=== PATIENT | female | born 1950 | race Caucasian/White ===

== ENCOUNTER 2023-05-02 07:50 | Emergency (ER) | payer OTHER, SELFPAY ==
[2023-05-02 08:00] VITALS: BP 123/65
--- NOTE | 2023-05-02 09:26 | ED.GENMED ---
History of Present Illness
General
Chief Complaint: Back Pain
Source: patient
Exam Limitations: none
Time Seen by Provider: 05/02/23 09:07
Nursing documentation reviewed up to this point in time: agreed with
Travel History
Have you had any contact with someone who has COVID-19?: No
Do you have any symptoms of coronavirus? Fever > 100 degrees, chills, cough, shortness of breath, sore throat, loss of taste or smell, muscle aches, or headache?: No
History of Present Illness
History of Present Illness:
72 y/o F with h/o COPD stillsmokes, HLD
here with lower back pain radiating down the side of her right leg x 5 days
no injuries
has had seimilar pain before last year and was seen here and given toradol IM and sent home with meloxicam and xanaflex.
pt says she really hasn't had any issues with it until a few days ago
no injuries or lifting.
Phy Exam
Physical Exam
Physical Exam:
GENERAL: Alert , in no apparent distress, comfortable at rest
HEAD: NCAT
NECK: no midline tenderness, active ROM intact, no paraspinal muscle tenderness;
CARDIAC: Regular rate and rhythm, no edema
LUNGS: faint end exp wheezing b/l, no acute respiratory distress, no rales/rhonchi
ABDOMEN: Soft, without focal tenderness, no r/g, no cvat, normal bowel sounds, nondistended
NEUROLOGICAL: Alert and oriented, no focal neuro deficits, CN intact, 5/5 strength, sensation intact, ambulation steady
SKIN: Warm and dry,
MUSCULOSKELETAL: No edema, well perfused. nontender hips
Back: lower lumbar tendenress, specifically right paraspinal moderate R SI joint tendenress no swelling
straight leg raise pos to pain going to thigh on the right at 30 degrees
PSYCH: Normal and appropriate interaction.
Course
Orders/Labs/Results
Orders:
Orders
05/02/23 09:24
Ketorolac [Toradol] 15 mg IM NOW STA
Prednisone [Deltasone] 50 mg PO NOW STA
Lumbar Spine Complete, 4 View [CR Lumbar Spine Comp Min 4 Vw*] Urgent
Comment:
Reason For Exam: low back pain
Vital Signs
Initial and Last Documented VS:
Initial Vital Signs
Temp Pulse Resp BP Pulse Ox
98.3 F 80 16 123/65 93
05/02/23 08:00 05/02/23 08:00 05/02/23 08:00 05/02/23 08:00 05/02/23 08:00
Last Documented Vital Signs
Temp Pulse Resp BP Pulse Ox
98.3 F 80 16 123/65 93
05/02/23 08:00 05/02/23 08:00 05/02/23 08:00 05/02/23 08:00 05/02/23 08:00
MDM/Problems Addressed
Differential Diagnosis Includes:
sciatica, lumbar radiculopathy, arthritis
MDM/Problems Addressed:
72 y/o F with copd, HLD
says she has recurrence of back pain in the right side down her right leg x 5 days no inciting injury
no weakness/numbness, incontinence, fever
has never had MRI
had the pain last year and was given nsaids and muscle relaxants which helped
she has no red flag exam findings
tender R SI joint
the right straight leg raise was miimally positive with pain into the thigh but no weankess/numbnes
no signs cauda equina
she is wheezing on exam which is typical for her
suspect that prednisone may be a good antiinflammatory for both her pain and her COPD
muscle relaxant for night
tylenol
lidocaine
screening xrays independently reviewed by me: degenerative changes; no fractures
*Critical Care Note
Total Time (30-74mins, 75-104mins- exclusive of procedures): Not Applicable
ED Attending Note
-
Portions of this chart may have been created with voice recognition software.� Occasional wrong word or��sound alike� substitutions may have occurred due to the inherent limitations of voice recognition software.
Discharge Plan
Departure
Patient Disposition: Home (Routine Discharge)
Date of Disposition: 05/02/23
Time of Disposition: 10:42
Patient with high blood pressure during this ER visit?: No
Condition: Fair
Covid-19: Not Applicable
Discharge Problem:
Acute lumbar radiculopathy
Instructions: Radiculopathy (DC)
Prescriptions:
New
tizanidine 4 mg capsule
4 mg PO HS PRN (Reason: muscle spasticity) Qty: 7 0RF
prednisone 20 mg tablet
20 mg PO BID Qty: 10 0RF
lidocaine 5 % adhesive patch,medicated
1 patch topical DAILY PRN (Reason: back pain) Qty: 15 0RF
No Action
tizanidine 4 MG tablet
4 mg PO HS Qty: 12 0RF
meloxicam 7.5 MG tablet
7.5 - 15 mg PO DAILY Qty: 20 0RF
Referrals:
Donny Jacinto MD [Family Provider] -
Activity Restrictions/Additional Instructions:
YOUR BACK PAIN COULD BE FROM SCIATICA OR FROM A DISC HERNIATION/INFLAMMATION IN YOUR LOWER LUMBAR SPINE AREA.
TAKE PREDNISOEN 20 MG TWICE A DAY STARTING TOMORROW FOR 5 DAYS
THIS IS AN ANTIINFLAMMATORY - YOU SHOULD AVOID MOTRIN/IBUPROFEN WHILE ON THIS MEDICATION
TAKE TYLENOL 2 EXTRA STRENGTH 3 TIMES A DAY FOR PAIN ADDIITIONALLY
APPLY LIDOCAINE PATCH 12 HOURS ON 12 HOURS OFF NEEDED
HEAT WHEN TH EPATCH IS OFF
YOU CAN USE THE MUSCLE RELAXANT AT NIGHT TO HELP YOU SLEEP, 4 MG
RETURN FOR: SEVERE PAIN, WEAKNESS/NUMBNESS IN THE LEGS, INCONTINENCE, FEVER, CHILLS, VOMITING, INAIBLITY TO WALK OR ANY CONCERNS.
Interventions
Interventions:
*ED COVID-19 Vaccine History Last Done: 05/02/23 08:00
[2023-05-02] MEDS: TORADOL 15 MG IM (10:30)
[2023-05-02] MEDS: DELTASONE 50 MG PO (10:31)
--- NOTE | 2023-05-02 13:19 | EDRN ---
Mari BELL informed me pt was feeling much better and no longer had the back pain she came in w/. Mari BELL cared for pt during this pt's stay in ER in [place] [address]
== END 2023-05-02 11:01 | disposition home or self-care (01) ==
LOC: EMR 07:50
PROVIDERS: EMERGENCY PHYSICIAN Emergency Medicine; FAMILY PHYSICIAN Family Medicine
DX: M54.16 Radiculopathy, lumbar region (principal); J44.9 Chronic obstructive pulmonary disease, unspecified; E78.5 Hyperlipidemia, unspecified
CPT/HCPCS: 99283; 96372; 72110

== ENCOUNTER → 2025-04-06 08:08 | Outpatient (REF) | payer OTHER, SELFPAY | LOC: HWRAD 08:08 | PROVIDERS: ATTENDING PHYSICIAN Podiatrist Foot & Ankle Surgery; FAMILY PHYSICIAN Family Medicine | DX: M20.12 Hallux valgus (acquired), left foot (principal); M20.11 Hallux valgus (acquired), right foot | CPT/HCPCS: 73630 ==